=== PATIENT | female | born 1990 | race Caucasian/White ===

== ENCOUNTER 2016-11-05 07:23 | Inpatient (IN) | payer BC ==
[~2016-11-05 07:23] MED LIST: Bupivacaine 0.25% 10 ML SDV ONE
[2016-11-05] MEDS ORDERED: Sodium Chloride 0.9% 10 ML Syringe FLUSH PRN (08:35)
[2016-11-05] MEDS ORDERED: Ondansetron 4 MG/2 ML SDV IVPUSH PRN (08:35)
[2016-11-05] MEDS ORDERED: Nalbuphine 20 MG/1 ML Amp IVPUSH PRN (08:35)
--- NOTE | 2016-11-05 08:55 | PCM.LDHP ---
L&D History of Present Illness - General Date of Service: 11/05/16 Admit Problem/Dx: Patient Status Order with Admit Dx/Problem 11/05/16 08:36 Patient Status [ADT] Routine Admission Diagnosis/Problem Admission Diagnosis/Problem Normal 11/05/16 08:41 26 year old 2 para 1001 with intrauterine at 40-2/7 weeks gestational age, active labor with cervical change. Source of Information: Patient History Limitations: Reports: No Limitations - History of Present Illness Introduction:: History of present illness: Gume is a 26-year-old 2 para 1001 white female was admitted on the a.m. of 11/05/2016 in active labor with some cervical change. Her cervix is now 3+ centimeters, 100% effaced, -2 station, anterior, cephalic presentation, bulging bag of aguilar which is a significant change from her last evaluation in clinic. She is padma approximately every 5 minutes. They are mild to moderate in nature. She has traveled from [facility] where she lives in labor. She is not able to get much rest during the course of the night because of her contractions. Baby has been active. 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 Patient's had 2 other ultrasounds on 04/28/2016 and 07/02/2016 both supporting her early ultrasound dating. She had menarche at age 14, cycles every 28 days, no control time conception. LMP was 01/21/2016. She is fairly definite about this LMP. Her past history includes a delivery on 12/11/2014 at 39-3/7 weeks gestational age after 24 hours of labor. She delivered a 7 lbs. 10 oz. female infant via normal spontaneous vaginal delivery. Baby had meconium-stained amniotic fluid. Child's name is Jade Cunha. course-the patient was initially seen at 7-1/7 weeks gestational age for her first visit. This was on March 18, 2016. She established care which was constant and regular throughout the rest of her course. Her weight gain during the course of her was from a pregravid weight of 123.8 up to 155 for a 32 pound weight gain. Vital signs have been stable throughout the course. Her fundal height growth has been appropriate. She's had a relatively unremarkable course. Her [place] depression screening score at 20 weeks on 06/09/2016 was 0. She declined genetic testing. Her group B strep screen was negative. Patient was actually scheduled for induction on 11/11/2016. [facility] [place] [facility] [place]. She plans to nurse. She is Rh- and had RhoGAM done on 08/24/2016. She did receive her Tdap immunization on 08/24/2016. labs include blood type which is all negative. Antibody screen is negative. Her hemoglobin at first visit was 12.9 and platelets are 234, 000. Her Pap smear was normal. Rubella titer showed immunity. RPR is nonreactive. Hepatitis B surface antigen was negative. HIV assay was negative. Chlamydia and gonorrhea were both negative. Her second trimester labs included a hemoglobin of 10.8 at which time she was started on ferrous sulfate 325 mg by mouth daily. Her platelet count was 177,000 and her diabetic screening test was 107. Her group B strep screen done on 10/07/2016 was negative. She received RhoGAM on 08/24/2016 as her antibody screen was negative and she is O- blood type. Allergies: 1. Amoxicillin which causes hives and swelling 2. Erythromycin which causes hives and swelling. Medications: 1. vitamins 1 daily 2. Vitamin D3 1000 units oral tablet 1 daily. 3. Calcium 500 mg/vitamin D tabs 1 daily. 4. DHEA omega-3 capsule 1 daily. 5. [facility] iron 325 mg tablets 1 daily. Past medical history: 1. Normal spontaneous vaginal delivery 12/11/2014 2. SALVADOR-2 on colposcopy Past surgical history: 1. Lasix surgery 2. [place] teeth extraction 3. Loop electrical surgical excision procedure of cervix for SALVADOR 2 2015 Family history: mother is alive and well. Father is alive and well. One brother and one sister both alive and well. Maternal grandmother is alive and well. Maternal grandfather is secondary to an CO. Paternal grandmother is alive and well. Paternal grandfather is alive at age 82 with dementia. No , bleeding, blood clotting or anesthesia problems noted in the family. Social history: patient is . is Leon Transtrom. She lives in [place], [place]. 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 She does not use any significant loss of alcohol, drugs or tobacco. She is a college graduate. Review of systems: In general patient has no concerns. She has symptoms and signs. Skin-negative Respiratory-negative Cardiovascular-no chest pain or exercise intolerance GI -negative -changes associated with only. Mom estimates weight at 8 lbs. 0 oz. Neurologic -negative Musculoskeletal -negative. Some edema noted on occasion in the lower extremities Physical exam: In general the patient is a well-developed, well-nourished, pleasant female stated age in no acute distress. She is alert and oriented 3. Weight is 155 on last evaluation clinic. Her pregravid weight was 123.8 for a body mass index of 20. Height is 5 feet 5 inches. Most recent blood pressure in clinic was 101/61. heart rate was 1:30. Skin is warm and dry without lesions. Lungs are clear with good breath sounds in all lung valenzuela. Cardiovascular exam shows regular rate and rhythm without murmurs. Breast exam deferred have been done previously in and found to be normal. Abdomen is protuberant with fundal height of 40 cm. Baby in a vertex presentation. Cervix is as described above. Extremities neurological exam grossly within normal limits. No significant edema is noted. - Related Data Allergies/Adverse Reactions: Allergies Allergy/AdvReac Type Severity Reaction Status Date / Time amoxicillin Allergy Hives Verified 12/10/14 16:43 erythromycin base Allergy Hives Verified 12/10/14 16:43 Home Medications: Home Meds Vit No.124/Iron/FA [ Vitamin Tablet] 1 tab PO DAILY 12/10/14 [ History] Acetaminophen [Tylenol] 650 mg PO Q6H PRN #50 tablet 12/13/14 [Rx] Benzocaine/Menthol [Dermoplast Pain Relief [place]] 1 spray TOP ASDIRECTED PRN #1 canister 12/13/14 [Rx] Docusate Sodium [Colace] 100 mg PO BID PRN #50 cap 12/13/14 [Rx] Ibuprofen [Motrin] 200 - 800 mg PO Q6H PRN #50 tablet 12/13/14 [Rx] Lanolin [Lansinoh HPA] 1 applic TOP ASDIRECTED PRN #1 tube 12/13/14 [Rx] Past Medical History - Past Health History Medical/Surgical History: Denies Medical/Surgical History - Past Surgical History Other HEENT Surgeries/Procedures: LASIK bilateral Social & Family History - Tobacco Use Smoking Status *Q: Never Smoker Second Hand Smoke Exposure: No - Recreational Drug Use Recreational Drug Use: No H&P Review of Systems - Review of Systems: Review Of Systems: See Below L&D Exam - Exam Exam: See Below - Vital Signs Weight: 70.307 kg Problem List Initiated/Reviewed/Updated: Yes Orders Last 24hrs: Active Orders 24 hr Category Date Time Status Patient Status [ADT] Routine ADT 11/05/16 08:36 Ordered Activity as Tolerated [RC] PFP Care 11/05/16 08:36 Ordered Communication Order [RC] ASDIRECTED Care 11/05/16 08:36 Ordered Heart Tones [RC] ASDIRECTED Care 11/05/16 08:36 Ordered Notify Provider [RC] PFP Care 11/05/16 08:36 Ordered Notify Provider [RC] PRN Care 11/05/16 08:36 Ordered Peripheral IV Care [RC] . DIRECTED Care 11/05/16 08:36 Ordered Pump Management, Intrathecal [RC] ASDIRECTED Care 11/05/16 08:37 Ordered Vital Signs [RC] PER UNIT ROUTINE Care 11/05/16 08:36 Ordered Clear Liquid Diet [DIET] Diet 11/05/16 Breakfast Ordered CBC WITH AUTO DIFF [HEME] Stat Lab 11/05/16 08:35 Ordered Lactated Ringers [Ringers, Lactated] 1,000 ml Med 11/05/16 08:45 Ordered IV ASDIRECTED Lidocaine 1% [Xylocaine 1%] Med 11/05/16 08:35 Once 10 ml INJECT ONETIME ONE Nalbuphine [Nubain] Med 11/05/16 08:35 Ordered 10 mg IVPUSH Q2H PRN Ondansetron [Zofran] Med 11/05/16 08:35 Ordered 4 mg IVPUSH Q4H PRN Sodium Chloride 0.9% [Saline Flush] Med 11/05/16 08:35 Ordered 10 ml FLUSH ASDIRECTED PRN Electronic Heart Tones Ext w TOCO [WOMSER] Oth 11/05/16 08:36 Ordered Routine Electronic Heart Tones Internal [WOMSER] Per Unit Oth 11/05/16 08:36 Ordered Routine Peripheral IV Insertion Adult [OM.PC] Routine Oth 11/05/16 08:36 Ordered Resuscitation Status Routine Resus Stat 11/05/16 08:35 Ordered Medication Orders Lactated Ringer's (Ringers, Lactated) 1,000 mls @ 100 mls/hr IV ASDIRECTED HERMILA Lidocaine HCl (Xylocaine 1%) 10 ml INJECT ONETIME ONE Stop: 11/05/16 08:36 Nalbuphine HCl (Nubain) 10 mg IVPUSH Q2H PRN PRN Reason: Pain (moderate 4-6) Ondansetron HCl (Zofran) 4 mg IVPUSH Q4H PRN PRN Reason: Nausea/Vomiting Sodium Chloride (Saline Flush) 10 ml FLUSH ASDIRECTED PRN PRN Reason: Keep Vein Open Assessment/Plan Comment:: Assessment: 1. 40-2/7 week intrauterine , active labor, cervical change. 2. Reassuring heart tones 3. Group B strep negative. 4. Patient desires natural delivery but is accepting of an epidural 5. Patient plans to nurse Plan: 1. Anticipate normal spontaneous vaginal delivery 2. Epidural if patient desires 3. Support nursing decision 4. CBC to assess platelet count.
[2016-11-05] MEDS: Lactated Ringers 1,000 ML IV SCH ×2 (11:30→14:05)
[2016-11-05] MEDS ORDERED: Lidocaine 1% 50 ML MDV INJECT ONE (12:00)
[2016-11-05] MEDS ORDERED: diphenhydrAMINE 50 MG/ML SDV IVPUSH PRN (13:10)
[2016-11-05] MEDS ORDERED: ePHEDrine 50 MG/ML SDV IVPUSH PRN (13:10)
[2016-11-05] MEDS ORDERED: fentaNYL 100 MCG/2 ML SDV EPIDUR PRN (13:10)
[2016-11-05] MEDS ORDERED: Bupivacaine/fentaNYL/NS 100 ML Bag EPIDUR SCH (13:15)
--- NOTE | 2016-11-05 13:28 | PCM.PREANE ---
Preanesthetic Assessment - Anesthesia/Transfusion/Family Hx Anesthesia History: Prior Anesthesia Without Reaction Family History of Anesthesia Reaction: No Transfusion History: No Prior Transfusion(s) - Review of Systems General: No Symptoms Pulmonary: No Symptoms, Other (seasonal allergies) Cardiovascular: No Symptoms Gastrointestinal: No Symptoms Neurological: No Symptoms Other: Reports: None - Physical Assessment O2 Sat by Pulse Oximetry: 96 Respiratory Rate: 16 Vital Signs: Last Vital Signs Temp 97.8 F 11/05/16 08:36 Pulse 87 11/05/16 08:36 Resp 16 11/05/16 08:36 BP 119/81 11/05/16 08:36 Pulse Ox 96 11/05/16 08:36 Height: 5 ft 5 in Weight: 70.307 kg ASA Class: 2 Mental Status: Alert & Oriented x3 Airway Class: Mallampati = 1 Dentition: Reports: Normal Dentition Thyro-Mental Finger Breadths: 3 ROM/Head Extension: Full Lungs: Clear to Auscultation, Normal Respiratory Effort Cardiovascular: Regular Rate, Regular Rhythm - Lab Values: Laboratory Last Values WBC 6.90 K/mm3 (3.98-10.04) 11/05/16 08:55 RBC 4.15 M/mm3 (3.98-5.22) 11/05/16 08:55 Hgb 12.1 gm/L (11.2-15.7) 11/05/16 08:55 Hct 36.2 % (34.1-44.9) 11/05/16 08:55 MCV 87.2 fl (79.4-94.8) 11/05/16 08:55 MCH 29.2 pg (25.6-32.2) 11/05/16 08:55 MCHC 33.4 g/dl (32.2-35.5) 11/05/16 08:55 RDW Std Deviation 41.7 fL (36.4-46.3) 11/05/16 08:55 Plt Count 138 K/mm3 (182-369) L 11/05/16 08:55 MPV 11.3 fl (9.4-12.3) 11/05/16 08:55 Neut % (Auto) 72.7 % (34.0-71.1) H 11/05/16 08:55 Lymph % (Auto) 14.1 % (19.3-51.7) L 11/05/16 08:55 [place] % (Auto) 11.2 % (4.7-12.5) 11/05/16 08:55 Eos % (Auto) 1.0 (0.7-5.8) 11/05/16 08:55 Baso % (Auto) 0.3 % (0.1-1.2) 11/05/16 08:55 Neut # (Auto) 5.02 K/mm3 (1.56-6.13) 11/05/16 08:55 Lymph # (Auto) 0.97 K/mm3 (1.18-3.74) L 11/05/16 08:55 [place] # (Auto) 0.77 K/mm3 (0.24-0.36) H 11/05/16 08:55 Eos # (Auto) 0.07 K/mm3 (0.04-0.36) 11/05/16 08:55 Baso # (Auto) 0.02 K/mm3 (0.01-0.08) 11/05/16 08:55 Urine Color Yellow (Yellow) 11/03/16 10:27 Urine Appearance Clear (Clear) 11/03/16 10:27 Urine pH 6.5 (5.0-8.0) 11/03/16 10:27 Ur Specific [place] 1.020 (1.005-1.030) 11/03/16 10:27 Urine Protein Trace (Negative) H 11/03/16 10:27 Urine Glucose (UA) Negative (Negative) 11/03/16 10:27 Urine Ketones Negative (Negative) 11/03/16 10:27 Urine Occult Blood Trace-intact (Negative) H 11/03/16 10:27 Urine Nitrite Negative (Negative) 11/03/16 10:27 Urine Bilirubin Negative (Negative) 11/03/16 10:27 Urine Urobilinogen 0.2 (0.2-1.0) 11/03/16 10:27 Ur Leukocyte Esterase Negative (Negative) 11/03/16 10:27 - Allergies Allergies/Adverse Reactions: Allergies Allergy/AdvReac Type Severity Reaction Status Date / Time amoxicillin Allergy Hives Verified 12/10/14 16:43 erythromycin base Allergy Hives Verified 12/10/14 16:43 - Blood Blood Available: No - Acknowledgements Anesthesia Type Planned: Epidural Pt an Appropriate Candidate for the Planned Anesthesia: Yes Alternatives and Risks of Anesthesia Discussed w Pt/Guardian: Yes Pt/Guardian Understands and Agrees with Anesthesia Plan: Yes PreAnesthesia Questionnaire - Past Health History Medical/Surgical History: Denies Medical/Surgical History Cardiovascular History: Reports: None Respiratory History: Reports: None Gastrointestinal History: Reports: GERD (with preg) Genitourinary History: Reports: Other (See Below) Other Genitourinary History: hx of kidney stone in past year 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 has not been in contact with for two weeks. her child is free of hand foot and mouth at this time. - Past Surgical History HEENT Surgical History: Reports: Oral Surgery Other HEENT Surgeries/Procedures: LASIK bilateral - SUBSTANCE USE Smoking Status *Q: Never Smoker Tobacco Use Within Last Twelve Months: No Second Hand Smoke Exposure: No Days Per Week of Alcohol Use: 0 Recreational Drug Use History: No - HOME MEDS Home Medications: Home Meds Vit No.124/Iron/FA [ Vitamin Tablet] 1 tab PO DAILY 12/10/14 [ History] Acetaminophen [Tylenol] 650 mg PO Q6H PRN #50 tablet 12/13/14 [Rx] Benzocaine/Menthol [Dermoplast Pain Relief [place]] 1 spray TOP ASDIRECTED PRN #1 canister 12/13/14 [Rx] Docusate Sodium [Colace] 100 mg PO BID PRN #50 cap 12/13/14 [Rx] Ibuprofen [Motrin] 200 - 800 mg PO Q6H PRN #50 tablet 12/13/14 [Rx] Lanolin [Lansinoh HPA] 1 applic TOP ASDIRECTED PRN #1 tube 12/13/14 [Rx] - CURRENT (IN HOUSE) MEDS Current Meds: Current Medications Diphenhydramine HCl (Benadryl) 25 mg IVPUSH Q6H PRN PRN Reason: pruritis Ephedrine Sulfate (Ephedrine Sulfate) 5 mg IVPUSH ASDIRECTED PRN PRN Reason: Hypotension Fentanyl (Sublimaze) 100 mcg EPIDUR Q3H PRN PRN Reason: Pain Fentanyl/Bupivacaine HCl (Fentanyl/Bupivacaine/Ns 2 Mcg-0.125% 100 Ml) 100 ml EPIDUR ASDIRECTED [facility] Lactated Ringer's (Ringers, Lactated) 1,000 mls @ 100 mls/hr IV ASDIRECTED [facility] Last Admin: 11/05/16 11:30 Dose: 100 mls/hr Nalbuphine HCl (Nubain) 10 mg IVPUSH Q2H PRN PRN Reason: Pain (moderate 4-6) Ondansetron HCl (Zofran) 4 mg IVPUSH Q4H PRN PRN Reason: Nausea/Vomiting Sodium Chloride (Saline Flush) 10 ml FLUSH ASDIRECTED PRN PRN Reason: Keep Vein Open Discontinued Medications Lidocaine HCl (Xylocaine 1%) 10 ml INJECT ONETIME ONE Stop: 11/05/16 12:01
[2016-11-05] MEDS ORDERED: Oxytocin/Lactated Ringers 10 UNIT/1,000 ML BAG IV SCH ×3 (13:30)
--- NOTE | 2016-11-05 15:46 | PCM.SN ---
- Free Text/Narrative Note: Gume is a 26-year-old 2 now para 2002 white female at 40-3/7 weeks gestational age with an THEODORE of 11/02/2016 who was admitted early on the morning of 11/05/2016 in active labor. Patient had made cervical change from her last visit in clinic and had a bulging bag of aguilar. She is padma every 5 minutes. Contractions were mild to moderate. She arrived from the [facility] and was admitted for labor. After a short period of monitoring artificial rupture membranes was undertaken resulting in very lightly stained meconium amniotic fluid. Because of this Dr. Pantoja, pediatrics was present at delivery. Gume delivered a isabel, viable male in a left occiput anterior position over an intact perineum. The baby had Apgars of 8 and 9, weighed 3460 g (7 pounds 10.0 ounces), was 20.5 inches in length. The baby delivered at 1516 hrs. Baby had nuchal cord 1. It was moderately tight and reduced over the baby' s body. Pitocin started IV after delivery to facilitate uterine tone and decrease uterine bleeding. The placenta delivered at 1519 hrs. in a Garrido presentation. Her estimated blood loss was 100 mL. It appeared intact and complete. Cord had 3 blood vessels. The patient plans to nurse. Condition: Good
[2016-11-05] MEDS ORDERED: Witch Hazel Medicated Pads 100/Jar TOP PRN (15:54)
[2016-11-05] MEDS ORDERED: Acetaminophen 325 MG Tab PO PRN (15:54)
[2016-11-05] MEDS ORDERED: Lanolin 100% Cream 7 GM Tube TOP PRN (15:54)
[2016-11-05] MEDS: Docusate Sodium 100 MG Cap PO PRN (18:54)
[2016-11-05] MEDS: Ibuprofen 600 MG Tab PO PRN (18:55)
[2016-11-06] MEDS: Ibuprofen 600 MG Tab PO PRN ×2 (00:59→09:17)
[2016-11-06] MEDS: Prenatal Multivitamin with Calcium/Folic Acid/Iron Tab PO SCH (09:14)
[2016-11-06] MEDS: Docusate Sodium 100 MG Cap PO PRN ×2 (09:16→19:51)
--- NOTE | 2016-11-06 10:37 | PCM.SN ---
- Free Text/Narrative Note: day one patient is doing well. She has minimal lochia. She is voiding well. She is ambulating without concerns and nursing without problems. Vital signs stable, patient is afebrile. Her white count was 8.27, hemoglobin is 10.6, platelets are 115. Abdomen soft, nontender. Uterus is at the umbilicus. Extremities and neurological exam are grossly within normal limits. Assessment/plan: day 1 normal progress. Routine cares. Possibly home later today or tomorrow.
--- NOTE | 2016-11-07 08:43 | PCM.DCSUM1 ---
Discharge Summary - Hospital Course Free Text/Narrative:: Gume is a 26-year-old 2 now para 2002 white female at 40-3/7 weeks gestational age with an THEODORE of 11/02/2016 who was admitted early on the morning of 11/05/2016 in active labor. Patient had made cervical change from her last visit in clinic and had a bulging bag of aguilar. She is padma every 5 minutes. Contractions were mild to moderate. She arrived from the and was admitted for labor. After a short period of monitoring artificial rupture membranes was undertaken resulting in very lightly stained meconium amniotic fluid. Because of this Dr. Pantoja, pediatrics was present at delivery. Gume delivered a isabel, viable male infant in a left occiput anterior position over an intact perineum. The baby had Apgars of 8 and 9, weighed 3460 g (7 pounds 10.0 ounces), was 20.5 inches in length. The baby delivered at 1516 hrs. Baby had nuchal cord 1. It was moderately tight and reduced over the baby' s body. Pitocin started IV after delivery to facilitate uterine tone and decrease uterine bleeding. The placenta delivered at 1519 hrs. in a Garrido presentation. Her estimated blood loss was 100 mL. It appeared intact and complete. Cord had 3 blood vessels. The patient plans to nurse. patient is done well. She is voiding well, ambulating without concerns and is nursing without problems. She desires to be discharged today. Post CBC is within normal limits for the evaluation. - Discharge Data Discharge Date: 11/07/16 Discharge Disposition: Home, Self-Care 01 Condition: Good - Patient Instructions Diet: Regular Diet as Tolerated (Nursing diet with increased calcium and calories as recommended.) Activity: As Tolerated (No intercourse or tampons until bleeding resolves.) Driving: May Drive Today Showering/Bathing: May Shower (May take a bath) - Discharge Plan Home Medications: Home Meds Vit No.124/Iron/FA [ Vitamin Tablet] 1 tab PO DAILY 12/10/14 [ History] Acetaminophen [Tylenol] 650 mg PO Q6H PRN #50 tablet 12/13/14 [Rx] Benzocaine/Menthol [Dermoplast Pain Relief [place]] 1 spray TOP ASDIRECTED PRN #1 canister 12/13/14 [Rx] Docusate Sodium [Colace] 100 mg PO BID PRN #50 cap 12/13/14 [Rx] Ibuprofen [Motrin] 200 - 800 mg PO Q6H PRN #50 tablet 12/13/14 [Rx] Lanolin [Lansinoh HPA] 1 applic TOP ASDIRECTED PRN #1 tube 12/13/14 [Rx] Patient Handouts: Vaginal Delivery, Care After Referrals: Jayden Lion MD [Primary Care Provider] - [facility] - Discharge Summary/Plan Comment DC Time >30 min.: No Discharge Summary/Plan Comment: Discharge instructions: 1. Discharge home. Routine instructions concerning activity and follow-up given. 2. Routine dietary recommendations including increased calories and calcium as directed. 3. Routine precautions given concern increased pain, bleeding, temperature, signs/symptoms of DVT/PE. 4. Medications per home medication was printed, discussed with and given to the patient. 5. Return to clinic-Dr. Lion[facility]-6 weeks. Diagnosis: 40+ week intrauterine pregnancydelivered Condition: good - Patient Data Vitals - Most Recent: Last Vital Signs Temp 36.4 C 11/07/16 04:25 Pulse 76 11/07/16 04:25 Resp 16 11/07/16 04:25 BP 107/63 11/07/16 04:25 Pulse Ox 96 11/07/16 04:25 Weight - Most Recent: 70.307 kg I&O - Last 24 hours: Intake & Output 11/06/16 11/07/16 11/07/16 22:59 06:59 14:59 Intake Total 240 Balance 240 Lab Results - Last 24 hrs: Laboratory Results - last 24 hr 11/06/16 Range/Units 07:04 Blood Type O NEGATIVE Gel Antibody Screen Positive Screen 0 ros/5 flds - neg RhIG Candidate? Yes Rhogam Indicated Yes, baby rh pos H Med Orders - Current: Current Medications Acetaminophen (Tylenol) 650 mg PO Q4H PRN PRN Reason: mild pain or fever Docusate Sodium (Colace) 100 mg PO BID PRN PRN Reason: Constipation Last Admin: 11/06/16 19:51 Dose: 100 mg Emollient Ointment (Lansinoh Hpa) 0 gm TOP ASDIRECTED PRN PRN Reason: Sore Nipples Ibuprofen (Motrin) 600 mg PO Q4H PRN PRN Reason: Mild pain or fever Last Admin: 11/06/16 09:17 Dose: 600 mg Prenat Multivit/Wheel Worker/Iron/Folic Ac ( Plus Iron) 1 each PO DAILY HERMILA Last Admin: 11/06/16 09:14 Dose: 1 each Witch Sara (Tucks) 1 pad TOP ASDIRECTED PRN PRN Reason: Hemorrhoid pain Discontinued Medications Diphenhydramine HCl (Benadryl) 25 mg IVPUSH Q6H PRN PRN Reason: pruritis Ephedrine Sulfate (Ephedrine Sulfate) 5 mg IVPUSH ASDIRECTED PRN PRN Reason: Hypotension Fentanyl (Sublimaze) 100 mcg EPIDUR Q3H PRN PRN Reason: Pain Last Admin: 11/05/16 13:55 Dose: 100 mcg Fentanyl/Bupivacaine HCl (Fentanyl/Bupivacaine/Ns 2 Mcg-0.125% 100 Ml) 100 ml EPIDUR ASDIRECTED HERMILA Last Admin: 11/05/16 13:55 Dose: 100 ml Lactated Ringer's (Ringers, Lactated) 1,000 mls @ 100 mls/hr IV ASDIRECTED HERMILA Last Admin: 11/05/16 14:05 Dose: 100 mls/hr Oxytocin/Lactated Ringer's (Pitocin In Lr 10 Units/1,000 Ml) 10 unit in 1,000 mls @ 3,000 mls/hr IV TITRATE HERMILA; 500 MUNITS/MIN PRN Reason: Protocol Last Admin: 11/05/16 15:16 Dose: 500 munits/min, 3,000 mls/hr Oxytocin/Lactated Ringer's (Pitocin In Lr 10 Units/1,000 Ml) 10 unit in 1,000 mls @ 500 mls/hr IV TITRATE HERMILA PRN Reason: Protocol Oxytocin/Lactated Ringer's (Pitocin In Lr 10 Units/1,000 Ml) 10 unit in 1,000 mls @ 500 mls/hr IV TITRATE HERMILA PRN Reason: Protocol Lidocaine HCl (Xylocaine 1%) 10 ml INJECT ONETIME ONE Stop: 11/05/16 12:01 Last Admin: 11/06/16 16:32 Dose: Not Given Nalbuphine HCl (Nubain) 10 mg IVPUSH Q2H PRN PRN Reason: Pain (moderate 4-6) Ondansetron HCl (Zofran) 4 mg IVPUSH Q4H PRN PRN Reason: Nausea/Vomiting Sodium Chloride (Saline Flush) 10 ml FLUSH ASDIRECTED PRN PRN Reason: Keep Vein Open *Q Meaningful Use (DIS) - VTE *Q VTE Criteria *Q: - Stroke *Q Stroke Criteria *Q: - AMI *Q AMI Criteria *Q:
[2016-11-07 09:54] VITALS: BP 103/73
[2016-11-07] MEDS: Prenatal Multivitamin with Calcium/Folic Acid/Iron Tab PO SCH (12:09)
== END 2016-11-07 11:15 | disposition home or self-care (01) | DRG 560 ==
LOC: JD.OB 07:23 → JD.OBCHECK 07:23 → JD.OB 08:36 → JD.MS 15:16 → OBSVTOIN 15:16 → JD.OB 17:19
PROVIDERS: ADMIT Obstetrics & Gynecology; ATTEND Obstetrics & Gynecology
PROC: 10E0XZZ Delivery of Products of Conception, External Approach (ICD-10-PCS; principal; 2016-11-05)
PROC: 10907ZC Drainage of Amniotic Fluid, Therapeutic from Products of Conception, Via Natural or Artificial Opening (ICD-10-PCS; 2016-11-05)
PROC: 00HU33Z Insertion of Infusion Device into Spinal Canal, Percutaneous Approach (ICD-10-PCS; 2016-11-05)
PROC: 3E0R3CZ (ICD-10-PCS; 2016-11-05)
DX: O77.0 Labor and delivery complicated by meconium in amniotic fluid (principal); O69.81X0 Labor and delivery complicated by cord around neck, without compression, not applicable or unspecified; Z3A.40 40 weeks gestation of pregnancy; Z37.0 Single live birth; Z88.1 Allergy status to other antibiotic agents
CPT/HCPCS: 36415; 81003; 85025; 85027; 85461; 86850; 86870; 86900; 86901; A9270-GY; J2590; J2790; J3010; J7120

== ENCOUNTER 2020-06-12 07:12 | Inpatient (IN) | payer OTHER ==
--- NOTE | 2020-06-12 08:16 | PCM.LDHP ---
L&D History of Present Illness - General Date of Service: 06/12/20 Admit Problem/Dx: Admission Diagnosis/Problem Admission Diagnosis/Problem Source of Information: Patient History Limitations: Reports: No Limitations - History of Present Illness Introduction:: Gume is a 30 year old O- x 3 who presented to clinic on 06/09/20 following her routine OB US which demonstrated no cardiac activity and infant size consistent with 14-15 weeks with noted decomposition, indicating somewhat extended time since demise. Etiology of demise was not apparent by US> She reports taht she did not feel significant activity but thought this was normal due to early gestational age. She does have a history of growth restriction with her last and has been evaluated by M for this. She elected to proceed with induction of labor with cytotec for demise on 06/12/20. She did report passage of a small clot of blood this morning around 7 am, but otherwise denies vaginal bleeding or change in her discharge. Denies fever of chills. Present Illness Comments:: Gume is a 30 year old O- x 3 who presented to clinic on 06/09/20 following her routine OB US which demonstrated no cardiac activity and size consistent with 14-15 weeks with noted decomposition, indicating somewhat extended time since demise. Etiology of demise was not apparent by US. She reports that she did not feel significant activity but thought this was normal due to early gestational age. She does have a history of growth restriction with her last and has been evaluated by M for this. She elected to proceed with induction of labor with cytotec for demise on 06/12/20. The patient has otherwise received routine care with Dr. Lion. OBGYN History 12/11/14: of a live female infant at 39-3 weeks gestational age weighing 7 lbs 10 ounces - "Jade Cunha" 11/05/16: of a live male infant at 40-2 weeks gestational age weighing 7 lbs 10 ounces - Will Reaves 01/29/19. of a live male infant at 38-5 weeks gestational age weighing 5 lbs 11 ounces G4: current , demise labs: Blood type: O- Antibody screen: Negative Rubella status: immune Hepatitis B surface antigen: negative Hepatitis C: unknown RPR: negative HIV: negative Gonorrhea: unknown Chlamydia: unknown Anatomy US: no cardiac activity and infant size consistent with 14-15 weeks with noted decomposition, indicating somewhat extended time since demise. Etiology of demise was not apparent by US One hour glucose tolerance test: N/A Second trimester hematocrit/hemoglobin: N/A, first trimester: 12.7/38.5% Platelets: first trimester 223,000 GBS status: unknown - Related Data Allergies/Adverse Reactions: Allergies Allergy/AdvReac Type Severity Reaction Status Date / Time amoxicillin Allergy Hives Verified 12/10/14 16:43 erythromycin base Allergy Hives Verified 12/10/14 16:43 Home Medications: Home Meds No122/Iron/Folic Acid [ Multi Tablet] 1 each PO DAILY 01/29/19 [History] Acetaminophen [Tylenol] 650 mg PO Q4H PRN tablet 01/31/19 [Rx] Ibuprofen [Motrin] 600 mg PO Q4H PRN tablet 01/31/19 [Rx] Past Medical History - Past Health History Medical/Surgical History: Denies Medical/Surgical History Cardiovascular History: Reports: None Respiratory History: Reports: None Gastrointestinal History: Reports: GERD (with preg) Genitourinary History: Reports: Renal Calculus Other Genitourinary History: hx of kidney stone in past year [employer] History: Reports: Hematologic History: Reports: Anemia - Infectious Disease History Infectious Disease History: Reports: Other (See Below) Other Infectious Disease History: has current hand foot and mouth. has not been in contact with for two weeks. her child is free of hand foot and mouth at this time. - Past Surgical History HEENT Surgical History: Reports: LASIK, Oral Surgery, Tonsillectomy Female Surgical History: Reports: LEEP Social & Family History - Family History Family Medical History: No Pertinent Family History - Caffeine Use Caffeine Use: Reports: None H&P Review of Systems - Review of Systems: Review Of Systems: See Below General: Reports: No Symptoms HEENT: Reports: No Symptoms Pulmonary: Reports: No Symptoms Cardiovascular: Reports: No Symptoms Gastrointestinal: Reports: No Symptoms Genitourinary: Reports: No Symptoms Musculoskeletal: Reports: No Symptoms Skin: Reports: No Symptoms Psychiatric: Reports: No Symptoms Neurological: Reports: No Symptoms Hematologic/Lymphatic: Reports: No Symptoms. Denies: Easy Bleeding L&D Exam - Exam Exam: See Below - Vital Signs Vital Signs: Last Vital Signs Temp 99.1 F 06/12/20 07:38 Pulse 86 06/12/20 07:38 Resp 16 06/12/20 07:38 BP 111/63 06/12/20 07:38 Pulse Ox 100 06/12/20 07:38 Weight: 135 lb - Exam General: Alert, Oriented Lungs: Clear to Auscultation, Normal Respiratory Effort Cardiovascular: Regular Rate, Regular Rhythm GI/Abdominal Exam: Normal Bowel Sounds, Soft, Non-Tender Extremities: Normal Inspection, Non-Tender, No Pedal Edema, Normal Capillary Refill Skin: Warm, Dry, Intact Psychiatric: Alert, Normal Affect, Normal Mood (Somewhat somber) - Patient Data Result Diagrams: 06/12/20 08:50 - Problem List (1) demise SNOMED Code(s): 447656752 ICD Code: [id number] - Status: Acute Current Visit: Yes (2) Second trimester SNOMED Code(s): 28820220 ICD Code: Z34.92 - ENCNTR FOR SUPRVSN OF NORMAL PREG, UNSP, SECOND TRIMESTER Status: Acute Current Visit: Yes (3) Rh negative status during SNOMED Code(s): 268766064 ICD Code: O26.899 - OTH RELATED CONDITIONS, UNSPECIFIED TRIMESTER; Z67.91 - UNSPECIFIED BLOOD TYPE, RH NEGATIVE Status: Acute Current Visit: Yes (4) Encounter for induction of labor SNOMED Code(s): 479851958 ICD Code: Z34.90 - ENCNTR FOR SUPRVSN OF NORMAL , UNSP, UNSP TRIMESTER Status: Acute Current Visit: Yes Problem List Initiated/Reviewed/Updated: Yes Assessment/Plan Comment:: Gume is a 30 year old O- x 3 who presented to clinic on 06/09/20 following her routine OB US which demonstrated no cardiac activity and size consistent with 14-15 weeks with noted decomposition, indicating somewhat extended time since demise. Etiology of demise was not apparent by US> She reports taht she did not feel significant activity but thought this was normal due to early gestational age. She does have a history of growth restriction with her last and has been evaluated by MFM for this. She presented to L&D today for elected induction of labor with cytotec for demise on 06/12/20. 1. Induction of labor for demise with cytotec 2. O- with negative antibody screen: RhoGAM indicated after delivery 3. Rubella immune 4. Activity as tolerated 5. Pain management as patient desires 6. Anticipate vaginal delivery unless otherwise indicated
[2020-06-12] MEDS ORDERED: Ondansetron 4 MG in Sodium Chloride 0.9% 50 ML IV ONE (08:36)
[2020-06-12] MEDS ORDERED: Atropine/Diphenoxylate 0.025-2.5 MG Tab PO ONE (08:37)
[2020-06-12] MEDS ORDERED: Ondansetron 4 MG/2 ML SDV IVPUSH PRN (08:49)
[2020-06-12] MEDS ORDERED: Misoprostol 25 MCG (1/4 of 100 MCG) Tab VAG SCH (09:00)
[2020-06-12] MEDS ORDERED: Misoprostol 200 MCG Tab ONE (09:01)
[2020-06-12] MEDS: Misoprostol 200 MCG Tab VAG SCH ×4 (09:07→18:56)
[2020-06-12] MEDS ORDERED: Nalbuphine 10 MG/1 ML Vial IVPUSH PRN (09:12)
[2020-06-12] MEDS ORDERED: Atropine/Diphenoxylate 0.025-2.5 MG Tab PO PRN (12:30)
[2020-06-12] MEDS ORDERED: Oxytocin/Lactated Ringers 10 UNIT/1,000 ML BAG IV ONE (12:46)
[2020-06-12] MEDS ORDERED: Oxytocin/Lactated Ringers 10 UNIT/1,000 ML BAG IV SCH (13:15)
[2020-06-12] MEDS: Nalbuphine 10 MG/1 ML Vial IVPUSH PRN ×2 (17:39→18:53)
[2020-06-12] MEDS ORDERED: Lactated Ringers 1,000 ML IV ONE (22:30)
--- NOTE | 2020-06-12 22:46 | PCM.SN.2 ---
- Free Text/Narrative Note: Delivery note: Gume is a 30 year old O- now ( x 3, present nonviable ) who presented to clinic on 06/09/20 following her routine OB US which demonstrated no cardiac activity and size consistent with 14-15 weeks with noted decomposition, indicating somewhat extended time since demise. Questions held with patient as to method of induction including Cytotec. The procedure, risk, benefits, side effects from the Cytotec and the alternatives of management were discussed in detail. Patient wished to proceed and induction was undertaken. Cytotec 600 mcg per vagina was administered every 3 hours. Pain was controlled with Nubain. Orders were given for medications to treat nausea, diarrhea and fever if symptoms occurred. The patient had 3 doses of Cytotec, moderate amount of blood loss and very slow progression of labor. At hours patient delivered a nonviable, early in the gestational sac along with the placenta as a single unit. The sac was opened and the fetus was evaluated. It was readily apparent that there was a nuchal cord x4 that was severely constricting in appearance. It appears that this is the most probable cause of the demise. The fetus appeared intact, complete and showed no evidence of congenital anomaly. Bleeding was minimal after the delivery of the gestational sac, fetus, placental unit. Patient appears to be appropriately grieving. is with her and attending to her needs appropriately. Weight of the baby: 33 grams Length of the baby: 15.2 cm (6.0 inches) Time of delivery: 2143 hours Estimated blood loss: less than 100 ml Apgars: 0/0
[2020-06-12] MEDS ORDERED: Acetaminophen 325 MG Tab PO PRN (23:28)
[2020-06-12] MEDS ORDERED: Ibuprofen 600 MG Tab PO PRN (23:28)
[2020-06-13 08:59] VITALS: BP 99/62; PULSE 89
--- NOTE | 2020-06-13 10:40 | PCM.DCSUM1 ---
Discharge Summary - Hospital Course Free Text/Narrative:: Gume is a 30 year old O- x 3 who presented to clinic on 06/09/20 following her routine OB US which demonstrated no cardiac activity and size consistent with 14-15 weeks with noted decomposition, indicating somewhat extended time since demise. Patient underwent Cytotec induction with 600 mcg of Cytotec vaginally x3 doses. During the course the day she had slow dilation of the cervix and eventually had delivery of the intact gestational sac with fetus inside and the placenta as 1 single unit. She had no further significant bleeding. Told amount of bleeding she had is approximately 550 cc throughout the day. On evaluation of the fetus it was noted that there was a nuchal cord x4 which was severely tightened to the point where I suspect this was the etiology of the demise. Appropriate care of the fetus with home involvement was then undertaken. Patient has recovered nicely. On the morning after delivery she is doing well physically with normal vital signs. She is ambulating well. She has minimal lochia. She is grieving appropriately. She is desiring discharge home. Diagnosis: Stroke: No - Discharge Data Discharge Date: 06/13/20 Discharge Disposition: Home, Self-Care 01 Condition: Good - Referral to Home Health Primary Care Physician: PCP None - Patient Instructions Diet: Regular Diet as Tolerated Activity: As Tolerated (Tampons until bleeding resolves.) Driving: May Drive Today Showering/Bathing: May Shower Notify Provider of: Fever, Increased Pain, Swelling and Redness, Nausea and/or Vomiting - Discharge Plan Home Medications: Home Meds No122/Iron/Folic Acid [ Multi Tablet] 1 each PO DAILY 01/29/19 [History] Acetaminophen [Tylenol] 650 mg PO Q4H PRN tablet 01/31/19 [Rx] Ibuprofen [Motrin] 600 mg PO Q4H PRN tablet 01/31/19 [Rx] Patient Handouts: Managing Loss Referrals: Jayden Lion MD [Family Provider] - ( Return to [facility]2 to 4 weeks. Patient to call for an appointment.) - Discharge Summary/Plan Comment DC Time >30 min.: No Discharge Summary/Plan Comment: Discharge instructions: 1. Discharge home 2. Diet, activity and follow-up discussed with patient. 3. Precautions given concern increased pain, bleeding, temperature, signs/symptoms of DVT/PE. 4. Medications per home medication was printed, discussed with and given to the patient. 5. Return to clinic-Dr. Lion[facility] in 2-4 weeks. Diagnosis: [id number] weeks- Condition: Good - Patient Data Vitals - Most Recent: Last Vital Signs Temp 37.1 C 06/13/20 08:56 Pulse 89 06/13/20 08:56 Resp 18 06/13/20 08:56 BP 99/62 06/13/20 08:56 Pulse Ox 97 06/13/20 08:56 Weight - Most Recent: 61.235 kg I&O - Last 24 hours: Intake & Output 06/12/20 06/13/20 06/13/20 22:59 06:59 14:59 Intake Total 320 1202 Output Total 1910 Balance 320 -708 Lab Results - Last 24 hrs: Laboratory Results - last 24 hr 06/12/20 Range/Units 23:17 Blood Type O NEGATIVE Gel Antibody Screen Negative Screen 1 ros/5 flds - neg RhIG Candidate? Yes Rhogam Indicated Yes, baby rh unknown H Med Orders - Current: Current Medications Acetaminophen (Acetaminophen 325 Mg Tab) 650 mg PO Q4H PRN PRN Reason: mild pain or fever Ibuprofen (Ibuprofen 600 Mg Tab) 600 mg PO Q4H PRN PRN Reason: Mild pain or fever Discontinued Medications Diphenoxylate HCl/Atropine (Atropine/Diphenoxylate 0.025-2.5 Mg Tab) 2 tab PO ONETIME ONE Stop: 06/12/20 08:38 Last Admin: 06/12/20 12:37 Dose: 2 tab Documented by: Diphenoxylate HCl/Atropine (Atropine/Diphenoxylate 0.025-2.5 Mg Tab) 2 tab PO QID PRN PRN Reason: DIARRHEA Ondansetron HCl 4 mg/ Sodium (Chloride) 52 mls @ 100 mls/hr IV ONETIME ONE Stop: 06/12/20 09:08 Last Admin: 06/12/20 12:39 Dose: Not Given Documented by: Oxytocin/Lactated Ringer's (Pitocin In Lr 10 Units/1,000 Ml) Confirm Administered Dose 10 unit in 1,000 mls @ as directed IV .STK-MED ONE Stop: 06/12/20 12:47 Last Admin: 06/12/20 13:08 Dose: Not Given Documented by: Oxytocin/Lactated Ringer's (Pitocin In Lr 10 Units/1,000 Ml) 10 unit in 1,000 mls @ 3,000 mls/hr IV CONTINUOUS HERMILA; Protocol Lactated Ringer's (Ringers, Lactated) 1,000 mls @ 999 mls/hr IV ONETIME ONE Stop: 06/12/20 23:30 Last Admin: 06/12/20 22:35 Dose: 999 mls/hr Documented by: Misoprostol (Misoprostol 25 Mcg (1/4 Of 100 Mcg) Tab) 36,741 mcg VAG Q3HR HERMILA Misoprostol (Misoprostol 200 Mcg Tab) 600 mcg VAG Q3HR HERMILA Last Admin: 06/12/20 18:56 Dose: Not Given Documented by: Misoprostol (Misoprostol 200 Mcg Tab) Confirm Administered Dose 600 mcg .ROUTE .[facility]-MED ONE Stop: 06/12/20 09:02 Last Admin: 06/12/20 09:18 Dose: Not Given Documented by: Nalbuphine HCl (Nalbuphine 10 Mg/1 Ml Vial) 10 mg IVPUSH Q6H PRN PRN Reason: Pain Last Admin: 06/12/20 12:50 Dose: 10 mg Documented by: Nalbuphine HCl (Nalbuphine 10 Mg/1 Ml Vial) 10 mg IVPUSH Q2HR PRN PRN Reason: Pain Last Admin: 06/12/20 18:53 Dose: 5 mg Documented by: Ondansetron HCl (Ondansetron 4 Mg/2 Ml Sdv) 4 mg IVPUSH Q4H PRN PRN Reason: Nausea/Vomiting
== END 2020-06-13 11:23 | disposition home or self-care (01) | DRG 779 ==
LOC: JD.OB 07:12 → OBSVTOIN 22:32 → JD.OB 22:35
PROVIDERS: ADMIT Obstetrics & Gynecology; ATTEND Obstetrics & Gynecology
PROC: 10D17Z9 Manual Extraction of Products of Conception, Retained, Via Natural or Artificial Opening (ICD-10-PCS; principal; 2020-06-12)
PROC: 3E0P7VZ Introduction of Hormone into Female Reproductive, Via Natural or Artificial Opening (ICD-10-PCS; 2020-06-12)
DX: O02.1 Missed abortion (principal); O69.1XX0 Labor and delivery complicated by cord around neck, with compression, not applicable or unspecified; Z3A.15 15 weeks gestation of pregnancy; Z20.822 Contact with and (suspected) exposure to COVID-19
CPT/HCPCS: 36415; 59409; 85025; 85461; 86850; 86900; 86901; A9270-GY; J2300; J2790; J7120; U0002

== ENCOUNTER 2021-08-05 11:01 | Inpatient (IN) | payer OTHER ==
[2021-08-05] MEDS ORDERED: Lidocaine 1% 50 ML MDV INJECT ONE (11:11)
[2021-08-05] MEDS ORDERED: Ondansetron 4 MG/2 ML SDV IVPUSH PRN (11:11)
[2021-08-05] MEDS ORDERED: Sodium Chloride 0.9% 10 ML Syringe FLUSH PRN (11:11)
[2021-08-05] MEDS ORDERED: Nalbuphine HCl 10 MG/ 1ML Amp IVPUSH PRN (11:11)
[2021-08-05] MEDS ORDERED: Oxytocin/Lactated Ringers 10 UNIT/1,000 ML BAG IV SCH ×2 (11:15)
[2021-08-05] MEDS ORDERED: Acetaminophen/Codeine 300-30 MG Tab PO PRN (11:50)
[2021-08-05] MEDS: Lactated Ringers 1,000 ML IV SCH ×2 (11:51→13:12)
[2021-08-05] MEDS ORDERED: Docusate Sodium 100 MG Cap PO SCH (12:30)
[2021-08-05] MEDS ORDERED: diphenhydrAMINE 50 MG/ML SDV IVPUSH PRN (13:00)
[2021-08-05] MEDS ORDERED: Bupivacaine/fentaNYL/NS 100 ML Bag EPIDUR PRN (13:00)
[2021-08-05] MEDS ORDERED: ePHEDrine 50 MG/ML SDV IVPUSH PRN (13:00)
[2021-08-05] MEDS ORDERED: fentaNYL 100 MCG/2 ML SDV EPIDUR PRN (13:00)
[2021-08-05] MEDS ORDERED: Sodium Chloride 0.9% 10 ML Syringe FLUSH SCH (21:00)
[2021-08-05] MEDS ORDERED: Acetaminophen 325 MG Tab PO PRN (22:32)
[2021-08-05] MEDS ORDERED: Benzocaine/Menthol 20%-0.5% Spray 78 GM Cannister TOP PRN (22:32)
[2021-08-05] MEDS ORDERED: Witch Hazel Medicated Pads 40/Jar TOP PRN (22:32)
[2021-08-05] MEDS: Ibuprofen 600 MG Tab PO PRN (23:10)
[2021-08-05] MEDS: Docusate Sodium 100 MG Cap PO SCH (23:13)
[2021-08-06] MEDS ORDERED: Lactated Ringers 1,000 ML IV ONE (07:24)
[2021-08-06] MEDS: Ibuprofen 600 MG Tab PO PRN ×3 (07:37→22:56)
[2021-08-06] MEDS: Prenatal Multivitamin with Calcium/Folic Acid/Iron Tab PO SCH (10:12)
[2021-08-06] MEDS: Docusate Sodium 100 MG Cap PO SCH ×2 (10:12→21:51)
[2021-08-07] MEDS: Docusate Sodium 100 MG Cap PO SCH (10:08)
[2021-08-07] MEDS: Prenatal Multivitamin with Calcium/Folic Acid/Iron Tab PO SCH (10:08)
[2021-08-07 10:54] VITALS: BP 108/68; PULSE 68
[2021-08-07] MEDS ORDERED: Simethicone 80 MG Tab.Chew PO SCH (11:00)
== END 2021-08-07 10:45 | disposition home or self-care (01) | DRG 807 ==
LOC: JD.OB 11:01 → OBSVTOIN 22:16 → JD.OB 22:16
PROVIDERS: ADMIT Obstetrics & Gynecology; ATTEND Obstetrics & Gynecology
PROC: 10E0XZZ Delivery of Products of Conception, External Approach (ICD-10-PCS; principal; 2021-08-05)
PROC: 10907ZC Drainage of Amniotic Fluid, Therapeutic from Products of Conception, Via Natural or Artificial Opening (ICD-10-PCS; 2021-08-05)
PROC: 3E0R3BZ Introduction of Anesthetic Agent into Spinal Canal, Percutaneous Approach (ICD-10-PCS; 2021-08-05)
PROC: 00HU33Z Insertion of Infusion Device into Spinal Canal, Percutaneous Approach (ICD-10-PCS; 2021-08-05)
DX: O99.892 Other specified diseases and conditions complicating childbirth (principal); Z37.0 Single live birth; Z3A.39 39 weeks gestation of pregnancy; O99.02 Anemia complicating childbirth; O69.81X0 Labor and delivery complicated by cord around neck, without compression, not applicable or unspecified; D64.9 Anemia, unspecified; N20.0 Calculus of kidney
CPT/HCPCS: 36415; 51702; 59025; 59409; 81001; 85025; 85461; 86592; 86850; 86870; 86900; 86901; A9270-GY; J2405; J2590; J2790; J3010; J3490; J7120

== ENCOUNTER 2023-06-25 23:33 | Inpatient (IN) | payer BC ==
[2023-06-25] MEDS ORDERED: Lidocaine 1% 50 ML MDV INJECT PRN (23:37)
[2023-06-25] MEDS ORDERED: Sodium Chloride 0.9% 10 ML Syringe FLUSH PRN (23:37)
[2023-06-25] MEDS ORDERED: Ondansetron 4 MG/2 ML SDV IVPUSH PRN (23:37)
[2023-06-25] MEDS ORDERED: Nalbuphine HCl 10 MG/ 1ML Amp IVPUSH PRN (23:37)
[2023-06-25 23:50] LABS: BASOPHILS ABSOLUTE AUTO 0.1 K/mm3 (0.0-0.2); BASOPHILS PERCENT AUTO 0.5 % (0.0-1.0); EOSINOPHILS ABSOLUTE AUTO 0.1 K/mm3 (0.0-0.4); EOSINOPHILS PERCENT AUTO 1.3 % (0.0-6.0); HEMATOCRIT 39.8 % (37.0-47.0); HEMOGLOBIN 13.3 gm/dl (12.0-16.0); IMMATURE GRAN PERCENT AUTO 0.9 % (0.0-0.4); LYMPHOCYTES ABSOLUTE AUTO 2.4 K/mm3 (1.0-4.8); LYMPHOCYTES PERCENT AUTO 22.5 % (24.0-44.0); MEAN CORPUSCULAR HEMOGLOBIN 28.6 pg (28.0-32.0); MEAN CORPUSCULAR HGB CONC 33.4 g/dl (32.0-36.0); MEAN CORPUSCULAR VOLUME 85.6 fl (83.0-99.0); MEAN PLATELET VOLUME 10.4 fl (9.4-12.3); MONOCYTES PERCENT AUTO 9.1 % (0.0-8.0); NEUTROPHILS PERCENT AUTO 65.7 % (41.0-71.0); PLATELET COUNT,PLT 188 K/mm3 (150-400); RED BLOOD CELL COUNT 4.65 M/mm3 (4.10-5.30); WHITE BLOOD CELL COUNT,WBC 10.63 K/mm3 (3.9-11.3)
[2023-06-26] MEDS ORDERED: ePHEDrine 50 MG/ML SDV IVPUSH PRN (00:05)
[2023-06-26] MEDS ORDERED: diphenhydrAMINE 50 MG/ML SDV IVPUSH PRN (00:05)
[2023-06-26] MEDS: Lactated Ringers 1,000 ML IV SCH (00:11)
[2023-06-26] MEDS: Bupivacaine/fentaNYL/NS 100 ML Bag EPIDUR PRN (00:11)
[2023-06-26] MEDS: fentaNYL 100 MCG/2 ML SDV EPIDUR PRN (00:13)
[2023-06-26] MEDS: Oxytocin/Lactated Ringers 30 UNIT/500 ML BAG IV SCH (01:40)
[2023-06-26] MEDS ORDERED: Bupivacaine 0.25% 10 ML SDV ONE (02:00)
[2023-06-26 02:40] LABS: HEMATOCRIT 38.3 % (37.0-47.0); HEMOGLOBIN 12.5 gm/dl (12.0-16.0); MEAN CORPUSCULAR HEMOGLOBIN 28.5 pg (28.0-32.0); MEAN CORPUSCULAR HGB CONC 32.6 g/dl (32.0-36.0); MEAN CORPUSCULAR VOLUME 87.2 fl (83.0-99.0); MEAN PLATELET VOLUME 10.6 fl (9.4-12.3); PLATELET COUNT,PLT 172 K/mm3 (150-400); RED BLOOD CELL COUNT 4.39 M/mm3 (4.10-5.30); WHITE BLOOD CELL COUNT,WBC 11.21 K/mm3 (3.9-11.3)
[2023-06-26 03:15] LABS: INR 0.93
[2023-06-26 03:17] LABS: PTT,PARTIAL THROMBOPLSTIN TIME 25.7 SECONDS (21.7-31.4)
[2023-06-26] MEDS ORDERED: Docusate Sodium 100 MG Cap PO PRN (03:38)
[2023-06-26] MEDS: Witch Hazel Medicated Pads 40/Jar TOP PRN (03:55)
[2023-06-26] MEDS: Benzocaine/Menthol 20%-0.5% Spray 78 GM Cannister TOP PRN (03:55)
[2023-06-26] MEDS: Ibuprofen 600 MG Tab PO SCH (07:52)
[2023-06-26] MEDS: Prenatal Multivitamin with Calcium/Folic Acid/Iron Tab PO SCH (07:56)
[2023-06-26] MEDS: Acetaminophen 325 MG Tab PO PRN (12:55)
[2023-06-27 09:02] VITALS: BP 119/73; PULSE 86
== END 2023-06-27 09:56 | disposition home or self-care (01) | DRG 560 ==
LOC: JD.OBCHECK 23:33 → JD.OB 23:36 → OBSVTOIN 06-26 01:33 → JD.OB 06-26 01:34
PROVIDERS: ADMIT Family Medicine; ATTEND Family Medicine
PROC: 10E0XZZ Delivery of Products of Conception, External Approach (ICD-10-PCS; principal; 2023-06-26)
PROC: 3E0R3BZ Introduction of Anesthetic Agent into Spinal Canal, Percutaneous Approach (ICD-10-PCS; 2023-06-26)
PROC: 00HU33Z Insertion of Infusion Device into Spinal Canal, Percutaneous Approach (ICD-10-PCS; 2023-06-26)
PROC: 3E0334Z Introduction of Serum, Toxoid and Vaccine into Peripheral Vein, Percutaneous Approach (ICD-10-PCS; 2023-06-26)
DX: O42.02 Full-term premature rupture of membranes, onset of labor within 24 hours of rupture (principal); Z37.0 Single live birth; O72.1 Other immediate postpartum hemorrhage; O48.0 Post-term pregnancy; O26.893 Other specified pregnancy related conditions, third trimester; O69.81X0 Labor and delivery complicated by cord around neck, without compression, not applicable or unspecified; O77.0 Labor and delivery complicated by meconium in amniotic fluid; O69.89X0 Labor and delivery complicated by other cord complications, not applicable or unspecified; Z3A.40 40 weeks gestation of pregnancy; Z88.0 Allergy status to penicillin; Z88.1 Allergy status to other antibiotic agents; Z90.89 Acquired absence of other organs; Z98.890 Other specified postprocedural states; Z67.41 Type O blood, Rh negative
CPT/HCPCS: 36415; 51701; 59025; 59409; 85025; 85027; 85384; 85461; 85610; 85730; 86592; 86850; 86870; 86900; 86901; A9270-GY; J2790; J3010; J3490; J7120; J7999